=== PATIENT | female | born 1960 | race Caucasian/White ===

== ENCOUNTER 2025-04-30 19:24 | Observation (INO) ==
--- NOTE | 2025-04-30 19:35 | DR.SOBA ---
HPI Time Seen Time Seen by Provider: 04/30/25 19:33 Complaints Chief Complaint Doctors Comments: -year-old female seen on arrival to ED from home via POV for acute onset asthma attack patient states she uses her inhaler at home but cannot catch her breath constantly coughing placed in cardiac room DuoNeb and Solu-Medrol ordered PMH PMH Past Medical History: Anxiety, Arthritis, Asthma, Depression, Dyslipidemia, Migraines, GERD, Headaches and Hypertension Past Surgical History: Yes Surgical History: Hysterectomy, Ortho Surgery and Other Family History Family Medical History: Cancer, [place], Coronary Artery Disease, Heart Failure, Sudden Cardiac and Hypertension Social History Do you use any recreational Drugs:: No ROS Review of Systems Constitutional: No Symptoms Reported Eyes: No Symptoms Reported ENTM: No Symptoms Reported Respiratoy: See HPI, Short of Breath and Wheezing Cardiovascular: No Symptoms Reported Gastrointestinal/Abdominal: No Symptoms Reported Genitourinary: No Symptoms Reported Neurological: No Symptoms Reported Musculoskeletal: No Symptoms Reported Integumentary: No Symptoms Reported Hematologic/Lymphatic: No Symptoms Reported Endocrine: No Symptoms Reported Psychiatric: No Symptoms Reported All Other Systems: Reviewed and Negative PE Vital Signs Vitals: Vital Signs Temperature 98.6 F Pulse Rate 95 Pulse Rate 100 Pulse Rate 102 Pulse Rate 98 Pulse Rate 95 Pulse Rate 112 Pulse Rate 104 Pulse Rate 107 Pulse Rate 106 Pulse Rate 121 Pulse Rate 128 Pulse Rate 107 Pulse Rate 134 Respiratory Rate 18 Respiratory Rate 21 Respiratory Rate 41 Respiratory Rate 49 Respiratory Rate 66 Respiratory Rate 51 Respiratory Rate 44 Respiratory Rate 30 Blood Pressure 127/67 Blood Pressure 134/68 Blood Pressure 123/65 Blood Pressure 137/79 Blood Pressure 171/98 O2 Sat by Pulse Oximetry 94 O2 Sat by Pulse Oximetry 93 O2 Sat by Pulse Oximetry 92 O2 Sat by Pulse Oximetry 96 O2 Sat by Pulse Oximetry 98 O2 Sat by Pulse Oximetry 96 O2 Sat by Pulse Oximetry 100 O2 Sat by Pulse Oximetry 100 O2 Sat by Pulse Oximetry 100 O2 Sat by Pulse Oximetry 100 O2 Sat by Pulse Oximetry 100 O2 Sat by Pulse Oximetry 100 O2 Sat by Pulse Oximetry 99 General Limitations: No Limitations General Appearance: Alert and In Distress (Coughing short of breath) Head Head Exam: Normal Inspection Eyes Eye exam: Normal Appearance ENT ENT Exam: Normal Exam Neck Neck Exam: Normal Inspection Chest Chest Inspection: Normal Inspection Respiratory Respiratory Exam: Accessory Muscle Use and Other (Diminished breath sounds and wheezing) Respiratory Exam: Bilateral: Clear to Auscultation Cardiovascular Cardiovascular Exam: Regular Rate and Normal Rhythm Abdominal Exam Abdominal Exam: Normal Inspection, Normal Bowel Sounds and Soft Extremities Extremities Exam: Normal Inspection Back Back Exam: Normal Inspection Neurologic Neurological Exam: Alert and Oriented X3 Psychiatric Psychiatric Exam: Normal Affect and Normal Mood Skin Skin Exam: Warm, Dry, Intact and Normal Color COURSE Treatment Treatment: Discussed with patient she lives alone will consult hospitalist for possible admission Discussed with Dr. Saucedo will admit [facility] Labs Reviewed 04/30/25 19:29 04/30/25 19: Laboratory: WBC 6.9 X10^3/uL (3.6-10.0) 04/30/25 19: RBC 4.48 X10^6/uL (3.5-5.4) 04/30/25 19: Hgb 13.2 g/dL (12.0-16.0) 04/30/25 19: Hct 39.7 % (36.0-47.0) 04/30/25: MCV 88.5 fL (80.0-100.0) 04/30/25 19: MCH 29.5 pg (27.0-34.0) 04/30/25 19: MCHC 33.3 g/dL (33.0-35.0) 04/30/25 19: RDW 13.9 % (11.6-16.5) 04/30/25 19: Plt Count 230 X10^3/uL (150.0-450.0) 04/30/25 19: MPV 9.7 fL (7.4-11.0) 04/30/25 19: Neut % (Auto) 48.7 % (42.0-75.0) 04/30/25 19: Lymph % (Auto) 39.9 % (21.0-51.0) 04/30/25 19: [place] % (Auto) 7.1 % (0.0-13.0) 04/30/25 19: Eos % (Auto) 3.7 % (0.9-2.9) H 04/30/25: Baso % (Auto) 0.6 % (0.2-1.0) 04/30/25: Neut # (Auto) 3.4 x10^3/uL (2.2-4.8) 04/30/25 19:29 Lymph # (Auto) 2.8 X10^3/uL (1.3-2.9) 04/30/25 19:29 [place] # (Auto) 0.5 x10^3/uL (0.3-0.8) 04/30/25 19:29 Eos # (Auto) 0.3 x10^3/uL (0.0-0.2) H 04/30/25 19: Baso # (Auto) 0.0 X10^3/uL (0.0-0.1) 04/30/25 19: Absolute Nucleated RBC 0.1 /100WBC 04/30/25: D-Dimer 2.08 ug/ml (0.0-0.57) H 04/30/25 19:29 Sodium 139 mmol/L (136-145) 04/30/25 19: Corrected Sodium TNP 04/30/25: Potassium 4.6 mmol/L (3.5-5.1) 04/30/25 19: Chloride 103 mmol/L (98-107) 04/30/25 19: Carbon Dioxide 23.0 mmol/L (21-32) 04/30/25 19: BUN 21 mg/dL (7-18) H 04/30/25 19: Creatinine 1.35 mg/dL (0.55-1.02) H 04/30/25 19:29 Est GFR (MDRD) Af Amer 51 (>60) L 04/30/25 19: Est GFR (MDRD) Non-Af 42 (>60) L 04/30/25 19: Glucose 92 mg/dL (65-99) 04/30/25 19: Calcium 9.0 mg/dL (8.5-10.1) 04/30/25 19: Corrected Calcium TNP 04/30/25: Total Bilirubin 0.60 mg/dL (0.2-1.0) 04/30/25 19: AST 21 Units/L (15-37) 04/30/25 19: ALT 25 Units/L (12-78) 04/30/25 19: Alkaline Phosphatase 85 Units/L (46-116) 04/30/25 19:29 Troponin I High Sens 4.5 ng/L (4.0-60.0) 04/30/25 19:29 B-Natriuretic Peptide 91.6 pg/mL (0-79) H 04/30/25 19:29 Total Protein 7.7 g/dL (6.4-8.2) 04/30/25 19:29 Albumin 4.1 g/dL (3.4-5.0) 04/30/25 19:29 Globulin 3.6 g/dL (2.5-4.5) 04/30/25 19:29 Albumin/Globulin Ratio 1.1 Ratio (1.1-2.1) 04/30/25 19:29 SARS-CoV-2 (PCR) Negative (NEGATIVE) 04/30/25 19:59 Influenza Type A (PCR) Negative (NEGATIVE) 04/30/25 19:59 Influenza Type B (PCR) Negative (NEGATIVE) 04/30/25 19:59 RSV (PCR) Negative (NEGATIVE) 04/30/25 19:59 Opioid Opioid Risk Tool Age (Suman box if 16-45): No History of Preadolescent Sexual Abuse: No Total: 0 Total Score Risk Category: Low Risk Copyright: Nieves predicting aberrant behaviors Discharge Plan Diagnosis Discharge Problem: Asthma exacerbation Discharge Plan Patient Disposition: 09 ADMITTED INPATIENT Condition: Stable Prescriptions: No Action alprazolam 0.5 mg tablet 0.5 mg PO TID PRN cyclobenzaprine 10 mg tablet 10 mg PO QPM atenolol 25 mg tablet 25 mg PO QDAY tramadol 50 mg tablet 50 mg PO BID PRN pantoprazole 40 mg tablet,delayed release (DR/EC) 40 mg PO QDAY simvastatin 20 mg tablet 20 mg PO QPM montelukast 10 mg tablet 10 mg PO QDAY albuterol sulfate [Ventolin HFA] 90 mcg/actuation HFA aerosol inhaler 2 puff inhalation Q4-6H PRN diazepam 5 mg tablet 5 mg PO BID PRN escitalopram oxalate 10 mg tablet 10 mg PO QDAY Restasis MultiDose 0.05 % drops 1 drp OPHTHALMIC (EYE) BID Patient Comments: [NO ORIGINAL SIG] Dupixent Pen 300 mg/2 mL pen injector 300 mg SUBCUT QWEEK Patient Comments: [NO ORIGINAL SIG] Trelegy Ellipta 200-62.5-25 mcg blister with device 1 ea inhalation QDAY Health Concerns: Post Hospitalization: new medications and changes needed to prevent readmission or further decline. Pt educated and given instructions on all concerns. Plan of Treatment: Continue with present treatment and follow up plan. Pt is to keep follow up appointment as instructed and take medications as ordered. Follow ups/Referrals Follow ups/Referrals: Adriel Saucedo MD [Primary Care Provider, MEDICAL] - 3 days Instructions Print Language: LEBANESE
[2025-04-30] MEDS: PROVENTIL NEB TX 0.083% 2.5MG/ 3ML NEB ONE ×2 (19:40→20:01)
[2025-04-30 19:44] LABS: MEAN PLATELET VOLUME 9.7 fL (7.4-11.0); RED CELL DISTRIBUTION WIDTH 13.9 % (11.6-16.5)
[2025-04-30 19:54] LABS: CREATININE 1.35 mg/dL (0.55-1.02); eGFR NON BLACK RACES 42 (>60)
[2025-04-30] MEDS: OMNIPAQUE 350 mg/mL 100 mL BTL IVP NR (20:09)
[2025-04-30] MEDS: MAGNESIUM SULFATE 50% INJ VIAL 2 G in NS 100 ML IV 100 ML IV STA (20:33)
--- NOTE | 2025-04-30 21:29 | CT ---
EXAM: CTA CHEST WITH CONTRAST HISTORY: Elevated D-dimer COMPARISON: None. TECHNIQUE: Axial images were acquired of the chest with IV contrast for a CT angiogram. Coronal and sagittal images were provided. All images were reviewed in a variety of windows and levels. 3D 8 mm thick MIPS images were provided. RADIATION REDUCTION TECHNIQUE: Automated exposure control, Adjustment of the mA and/or kV according to patient size, or iterative reconstruction techniques were used. 8 mm thick axial MIPS images were provided. FINDINGS: CHEST: THYROID GLAND: The thyroid gland is unremarkable. HEART AND VESSELS: The heart size is within normal limits. There is no evidence of a pericardial effusion. The thoracic aorta is normal in size without evidence of aneurysm or dissection. The main pulmonary artery size is within normal limits. There are no filling defects seen in the visualized pulmonary arteries to suggest a pulmonary embolism. LYMPHNODES: There is no evidence of axillary, mediastinal, or hilar lymphadenopathy AIRWAY: The trachea and mainstem bronchi are patent. No intraluminal lesions are seen. LUNGS: Dependent atelectatic changes are noted. There is no evidence of consolidation, pleural effusion, or pneumothorax. ESOPHAGUS: The esophagus is grossly unremarkable. BONES: The visualized bones demonstrate degenerative changes. There are no concerning lytic or blastic lesions identified. UPPER ABDOMINAL STRUCTURES: The visualized portions of the upper abdominal structures are unremarkable. IMPRESSION: 1. There are no filling defects seen in the visualized pulmonary arteries to suggest a pulmonary embolism. 2. Dependent atelectatic changes are noted THIS IS AN ELECTRONICALLY VERIFIED FINAL REPORT 04/30/2025 9:25 PM - Electronically signed by Jayson Stoll MD
[2025-04-30] MEDS ORDERED: TYLENOL 325 MG TAB PO PRN (22:08)
[2025-04-30] MEDS ORDERED: NORCO 5/325 MG TAB PO PRN (22:08)
[2025-04-30] MEDS ORDERED: ULTRAM PO PRN (22:08)
--- NOTE | 2025-04-30 22:11 | DR.SOBA ---
HPI Time Seen Time Seen by Provider: 04/30/25 19:33 Primary Care Physician Primary Care Physician: JYOTSNA Bryant Chief Complaint:: PT AMBULATORY IN ED WITH C/O HAVING AN ASTHMA ATTACK THAT STARTED APPROX 1 HOUR PRIOR TO ARRIVAL. PT STATES SHE USED HER INHALER WITHOUT RELIEF. PT SHORT OF BREATH AND CONTINOUSLY COUGHING. COVID-19 Coronavirus risk:travel/contact w/high risk person: No Has patient experienced Coronavirus symptoms: No Source History Provided: Patient Mode of Arrival Mode of Arrival: Ambulatory Timing Onset of Chief Complaint: 04/30/25 PMH PMH Past Medical History: Yes Past Medical History: Anxiety, Arthritis, Asthma, Depression, Dyslipidemia, Migraines, GERD, Headaches and Hypertension Past Surgical History: Yes Surgical History: Hysterectomy, Ortho Surgery and Other Past Surgical History Comment: BILATERAL BREAST BX BILATERAL CATARACT RIGHT FOOT Family History History of Family Medical Conditions: Yes Family Medical History: Cancer, [place], Coronary Artery Disease, Heart Failure, Sudden Cardiac and Hypertension Social History Does patient currently use any type of tobacco product: No Have you used tobacco products in the last 12 months: No Type of Tobacco Use: None Does any household member use tobacco: No Alcohol Use: None Do you use any recreational Drugs:: No Lives With: Alone Lives Where: Home Travel Risk Coronavirus risk:travel/contact w/high risk person: No Has patient experienced Coronavirus symptoms: No Infectious screening In the last 2 months have you had wt loss of >10#?: NO Have you had fever, night sweats or hemotysis?: No Have you traveled outside the country in the last 6 months?: No Isolation: Standard PE Vital Signs Vitals: Vital Signs Temperature 98.6 F Pulse Rate 95 Pulse Rate 100 Pulse Rate 102 Pulse Rate 98 Pulse Rate 95 Pulse Rate 112 Pulse Rate 104 Pulse Rate 107 Pulse Rate 106 Pulse Rate 121 Pulse Rate 128 Pulse Rate 107 Pulse Rate 134 Respiratory Rate 18 Respiratory Rate 21 Respiratory Rate 41 Respiratory Rate 49 Respiratory Rate 66 Respiratory Rate 51 Respiratory Rate 44 Respiratory Rate 30 Blood Pressure 127/67 Blood Pressure 134/68 Blood Pressure 123/65 Blood Pressure 137/79 Blood Pressure 171/98 O2 Sat by Pulse Oximetry 94 O2 Sat by Pulse Oximetry 93 O2 Sat by Pulse Oximetry 92 O2 Sat by Pulse Oximetry 96 O2 Sat by Pulse Oximetry 98 O2 Sat by Pulse Oximetry 96 O2 Sat by Pulse Oximetry 100 O2 Sat by Pulse Oximetry 100 O2 Sat by Pulse Oximetry 100 O2 Sat by Pulse Oximetry 100 O2 Sat by Pulse Oximetry 100 O2 Sat by Pulse Oximetry 100 O2 Sat by Pulse Oximetry 99 [facility] Labs Reviewed 04/30/25 19:04/30/25: Laboratory: WBC 6.9 X10^3/uL (3.6-10.0) 04/30/25 19: RBC 4.48 X10^6/uL (3.5-5.4) 04/30/25: Hgb 13.2 g/dL (12.0-16.0) 04/30/25 19: Hct 39.7 % (36.0-47.0) 04/30/25: MCV 88.5 fL (80.0-100.0) 04/30/25: MCH 29.5 pg (27.0-34.0) 04/30/25: MCHC 33.3 g/dL (33.0-35.0) 04/30/25: RDW 13.9 % (11.6-16.5) 04/30/25: Plt Count 230 X10^3/uL (150.0-450.0) 04/30/25: MPV 9.7 fL (7.4-11.0) 04/30/25: Neut % (Auto) 48.7 % (42.0-75.0) 04/30/25: Lymph % (Auto) 39.9 % (21.0-51.0) 04/30/25: [place] % (Auto) 7.1 % (0.0-13.0) 04/30/25: Eos % (Auto) 3.7 % (0.9-2.9) H 04/30/25: Baso % (Auto) 0.6 % (0.2-1.0) 04/30/25: Neut # (Auto) 3.4 x10^3/uL (2.2-4.8) 04/30/25: Lymph # (Auto) 2.8 X10^3/uL (1.3-2.9) 04/30/25: [place] # (Auto) 0.5 x10^3/uL (0.3-0.8) 04/30/25 19:29 Eos # (Auto) 0.3 x10^3/uL (0.0-0.2) H 04/30/25 19: Baso # (Auto) 0.0 X10^3/uL (0.0-0.1) 04/30/25 19: Absolute Nucleated RBC 0.1 /100WBC 04/30/25 19: D-Dimer 2.08 ug/ml (0.0-0.57) H 04/30/25 19:29 Sodium 139 mmol/L (136-145) 04/30/25 19: Corrected Sodium TNP 04/30/25 19: Potassium 4.6 mmol/L (3.5-5.1) 04/30/25 19: Chloride 103 mmol/L (98-107) 04/30/25 19: Carbon Dioxide 23.0 mmol/L (21-32) 04/30/25 19: BUN 21 mg/dL (7-18) H 04/30/25 19: Creatinine 1.35 mg/dL (0.55-1.02) H 04/30/25 19:29 Est GFR (MDRD) Af Amer 51 (>60) L 04/30/25 19: Est GFR (MDRD) Non-Af 42 (>60) L 04/30/25 19: Glucose 92 mg/dL (65-99) 04/30/25 19: Calcium 9.0 mg/dL (8.5-10.1) 04/30/25 19: Corrected Calcium TNP 04/30/25 19: Total Bilirubin 0.60 mg/dL (0.2-1.0) 04/30/25 19: AST 21 Units/L (15-37) 04/30/25 19: ALT 25 Units/L (12-78) 04/30/25 19: Alkaline Phosphatase 85 Units/L (46-116) 04/30/25 19: Troponin I High Sens 4.5 ng/L (4.0-60.0) 04/30/25 19: B-Natriuretic Peptide 91.6 pg/mL (0-79) H 04/30/25 19: Total Protein 7.7 g/dL (6.4-8.2) 04/30/25 19:29 Albumin 4.1 g/dL (3.4-5.0) 04/30/25 19:29 Globulin 3.6 g/dL (2.5-4.5) 04/30/25 19:29 Albumin/Globulin Ratio 1.1 Ratio (1.1-2.1) 04/30/25 19:29 SARS-CoV-2 (PCR) Negative (NEGATIVE) 04/30/25 19:59 Influenza Type A (PCR) Negative (NEGATIVE) 04/30/25 19:59 Influenza Type B (PCR) Negative (NEGATIVE) 04/30/25 19:59 RSV (PCR) Negative (NEGATIVE) 04/30/25 19:59 Opioid Opioid Risk Tool Age (Suman box if 16-45): No History of Preadolescent Sexual Abuse: No Total: 0 Total Score Risk Category: Low Risk Copyright: Ezequiel ZENDEJAS predicting aberrant behaviors Discharge Plan Diagnosis Discharge Problem: Asthma exacerbation Discharge Plan Patient Disposition: 09 ADMITTED INPATIENT Condition: Stable Prescriptions: No Action alprazolam 0.5 mg tablet 0.5 mg PO TID PRN cyclobenzaprine 10 mg tablet 10 mg PO QPM atenolol 25 mg tablet 25 mg PO QDAY tramadol 50 mg tablet 50 mg PO BID PRN pantoprazole 40 mg tablet,delayed release (DR/EC) 40 mg PO QDAY simvastatin 20 mg tablet 20 mg PO QPM montelukast 10 mg tablet 10 mg PO QDAY albuterol sulfate [Ventolin HFA] 90 mcg/actuation HFA aerosol inhaler 2 puff inhalation Q4-6H PRN diazepam 5 mg tablet 5 mg PO BID PRN escitalopram oxalate 10 mg tablet 10 mg PO QDAY Restasis MultiDose 0.05 % drops 1 drp OPHTHALMIC (EYE) BID Patient Comments: [NO ORIGINAL SIG] Dupixent Pen 300 mg/2 mL pen injector 300 mg SUBCUT QWEEK Patient Comments: [NO ORIGINAL SIG] Trelegy Ellipta 200-62.5-25 mcg blister with device 1 ea inhalation QDAY Health Concerns: Post Hospitalization: new medications and changes needed to prevent readmission or further decline. Pt educated and given instructions on all concerns. Plan of Treatment: Continue with present treatment and follow up plan. Pt is to keep follow up appointment as instructed and take medications as ordered. Orders to Discharge Patient Discharge Orders: Transfer (Routine); Ordered 04/30/25 Ordered By: Jl Perez Follow ups/Referrals Follow ups/Referrals: Adriel Saucedo MD [Primary Care Provider, MEDICAL] - 3 days Instructions Print Language: TURKISH
[2025-04-30] MEDS ORDERED: VALIUM PO ONE (23:00)
[2025-04-30] MEDS: NS 500 ML IV 500 ML IV ONE (23:09)
[2025-04-30] MEDS: OMNIPAQUE 350 mg/mL 100 mL BTL 100 ML ONE (23:09)
[2025-04-30 23:20] VITALS: BMI 25.4
[2025-05-01] MEDS: PROVENTIL NEB TX 0.083% 2.5MG/ 3ML NEB SCH (00:06)
[2025-05-01] MEDS: CONSULT PHARMACY - POTASSIUM & MAGNESIUM XX SCH (01:21)
[2025-05-01] MEDS: TYLENOL 325 MG TAB PO PRN (01:58)
[2025-05-01] MEDS: ALPRAZOLAM ODT PO ONE (01:58)
[2025-05-01] MEDS: ALPRAZOLAM ODT ONE (04:04)
[2025-05-01 04:49] LABS: MEAN PLATELET VOLUME 9.6 fL (7.4-11.0); RED CELL DISTRIBUTION WIDTH 13.5 % (11.6-16.5)
[2025-05-01 05:04] LABS: COR NA(FOR HYPERGLY) 143 mmol/L (136-145); CREATININE 1.64 mg/dL (0.55-1.02); eGFR NON BLACK RACES 34 (>60)
[2025-05-01 05:21] LABS: PLATELET MORPHOLOGY COMMENT NORMAL (NORMAL)
--- NOTE | 2025-05-01 05:58 | RAD ---
EXAM: CHEST, 1 VIEW HISTORY: sob; PT AMBULATORY IN ED WITH C/O HAVING AN ASTHMA ATTACK THAT STARTED APPROX 1 HOUR PRIOR TO ARRIVAL. PT STATES SHE USED HER INHALER WITHOUT RELIEF. PT SHORT OF BREATH AND CONTINOUSLY COUGHING. COMPARISON: 04/30/2025 FINDINGS: The trachea is midline. The cardiac silhouette is unremarkable . The lungs are clear without focal infiltrate or effusion. The bony thorax is unremarkable. IMPRESSION: Normal chest THIS IS AN ELECTRONICALLY VERIFIED FINAL REPORT 05/01/2025 5:55 AM - Electronically signed by Jimmy Hoskins MD
[2025-05-01] MEDS: PULMICORT NEB TX 0.5 MG NEB SCH (08:27)
[2025-05-01] MEDS ORDERED: LEXAPRO ONE (08:59)
[2025-05-01] MEDS: LEXAPRO PO SCH (09:01)
[2025-05-01] MEDS: SINGULAIR TAB 10 MG PO SCH (09:01)
[2025-05-01] MEDS: PROTONIX TAB 40 MG PO SCH (09:01)
[2025-05-01] MEDS: LOVENOX INJ 40 MG SYR SC SCH (09:02)
[2025-05-01] MEDS: VALIUM PO PRN (09:07)
[2025-05-01 09:09] VITALS: RESP 20
[2025-05-01] MEDS: NS 1,000 ML IV 1,000 ML IV SCH (10:37)
[2025-05-01] MEDS: TENORMIN PO SCH (10:45)
[2025-05-01] MEDS: ULTRAM PO PRN (10:49)
[2025-05-01 12:38] VITALS: BP 111/70; PULSE 88; TEMP 98.2; O2SAT 94
[2025-05-01] MEDS ORDERED: ZOCOR TAB 20 MG PO SCH (21:00)
--- NOTE | 2025-05-02 16:36 | DR.SSS ---
SHORT STAY SUMMARY Admission Date Date of Admission: 04/30/25 Discharge Date Discharge Date: 05/01/25 Admission Diagnoses Admission Diagnoses: Dyspnea Asthma exacerbation Discharge Diagnoses Discharge Diagnoses: Asthma exacerbation Anemia FRANKI Dehydration Chief Complaint Chief Complaint: Dyspnea History of Present Illness History of Present Illness: Patient is a 64-year-old female with a past medical history of asthma, hypertension, seasonal allergies, GERD and hyperlipidemia presented with worsening shortness of breath. Patient tried to use her nebulizer and inhalers at home but continued to have worsening symptoms. She does have a history of recurrent asthma attacks. ER workup included chest x-ray which was negative for acute infection. She did have elevated D-dimer, CT chest was done which was negative for PE. She was treated with IV magnesium and steroids. She was admitted for further evaluation. Past Medical History Past Medical History: Anxiety, Arthritis, Asthma, Depression, Dyslipidemia, Migraines, GERD, Headaches and Hypertension Past Surgical History Surgical History: Hysterectomy, Ortho Surgery and Other Allergies Allergies Allergy/AdvReac Type Severity Reaction Status Date / Time mupirocin (From Bactroban) Allergy Intermediate RASH Verified 04/30/25 19:51 codeine Allergy Unknown Verified 04/30/25 19:51 droperidol (From Inapsine) Allergy Unknown Verified 04/30/25 19:51 hydrocodone (From Vicodin) Allergy Unknown Verified 04/30/25 19:51 hydromorphone (From Dilaudid) Allergy Unknown Verified 04/30/25 19:51 influenza virus vaccine qs Allergy Unknown Verified 04/30/25 19:51 [id number] (65 years up) (From Fluad Quad (65y up)(PF)) ketorolac (From Toradol) Allergy Unknown Verified 04/30/25 19:51 nalbuphine (From Nubain) Allergy Unknown Verified 04/30/25 19:51 Penicillins Allergy Unknown Verified 04/30/25 19:51 vaccine adjuvant emulsion Allergy Unknown Verified 04/30/25 19:51 MF59C.1 (From Fluad Quad (65y up)(PF)) meloxicam Allergy Verified 04/30/25 19:51 propoxyphene (From Allergy Verified 04/30/25 19:51 Darvocet-N 100) sertraline (From Zoloft) Allergy Verified 04/30/25 19:51 Medications Home Medications: mupirocin (From Bactroban) Allergy (Intermediate, Verified 04/30/25 19:51) RASH codeine Allergy (Unknown, Verified 04/30/25 19:51) droperidol (From Inapsine) Allergy (Unknown, Verified 04/30/25 19:51) hydrocodone (From Vicodin) Allergy (Unknown, Verified 04/30/25 19:51) hydromorphone (From Dilaudid) Allergy (Unknown, Verified 04/30/25 19:51) influenza virus vaccine qs [id number] (65 years up) (From InDMusic (65y up)(PF)) Allergy (Unknown, Verified 04/30/25 19:51) ketorolac (From Toradol) Allergy (Unknown, Verified 04/30/25 19:51) nalbuphine (From Nubain) Allergy (Unknown, Verified 04/30/25 19:51) Penicillins Allergy (Unknown, Verified 04/30/25 19:51) vaccine adjuvant emulsion MF59C.1 (From FluNutritics (65y up)(PF)) Allergy (Unknown, Verified 04/30/25 19:51) meloxicam Allergy (Verified 04/30/25 19:51) propoxyphene (From Darvocet-N 100) Allergy (Verified 04/30/25 19:51) sertraline (From Zoloft) Allergy (Verified 04/30/25 19:51) CONTINUE taking the following medications albuterol sulfate 90 mcg/actuation aerosol inhaler (Ventolin HFA) 2 puff inhalation Q4-6H PRN 04/30/25 [History] atenolol 25 mg tablet 25 mg PO QDAY 04/30/25 [History] cyclobenzaprine 10 mg tablet 10 mg PO QPM 04/30/25 [History] cyclosporine 0.05 % eye drops (Restasis MultiDose) 1 drp ophthalmic (eye) BID [History] diazepam 5 mg tablet 5 mg PO BID PRN 04/30/25 [History] dupilumab 300 mg/2 mL subcutaneous pen injector (Dupixent) 300 mg subcut QWEEK 04/30/25 [History] escitalopram oxalate 10 mg tablet 10 mg PO QDAY 04/30/25 [History] fluticasone fur. 200 mcg-umeclid 62.5 mcg-vilant 25 mcg inhalat.powder (Trelegy Ellipta) 1 ea inhalation QDAY 04/30/25 [History] montelukast 10 mg tablet 10 mg PO QDAY 04/30/25 [History] pantoprazole 40 mg tablet,delayed release 40 mg PO QDAY 04/30/25 [History] simvastatin 20 mg tablet 20 mg PO QPM 04/30/25 [History] tramadol 50 mg tablet 50 mg PO BID PRN 04/30/25 [History] New Prescriptions methylprednisolone 4 mg tablets in a dose pack See Rx Instructions PO .COMPLEX #21 ea 05/01/25 [Rx] Family History Family Medical History: Cancer, [place], Heart Failure and Hypertension Social History Does patient currently use any type of tobacco product: No Have you used tobacco products in the last 12 months: No Type of Tobacco Use: None Does any household member use tobacco: No Alcohol Use: None Drug Use: None Review of Systems Constitutional: No Symptoms Reported Eyes: No Symptoms Reported ENT: No Symptoms Reported Respiratory: Shortness of Breath and SOB with Excertion Cardiovascular: No Symptoms Reported Gastrointestinal: No Symptoms Reported Genitourinary: No Symptoms Reported Musculoskeletal: No Symptoms Reported Skin: No Symptoms Reported Neurological: No Symptoms Reported Physical Exam Vital Signs: Last Vital Signs Temp 98.2 F 05/01/25 12:00 Pulse 88 05/01/25 12:00 Resp 20 05/01/25 12:00 BP 111/70 05/01/25 12:00 Pulse Ox 94 L 05/01/25 12:00 O2 Del Method Room Air 05/01/25 12:00 O2 Flow Rate 2 05/01/25 08:32 FiO2 28 05/01/25 08:32 Oriented: Normal Respiratory: Clear Throughout Cardiovascular: Normal Palpation: Normal Tenderness: Normal Skin: Normal Musculoskeletal: Normal Psychiatric: Normal Mood Description: Calm Affect: Normal Speech Pattern: Clear and Appropriate Labs Labs: Laboratory Last Values WBC 5.4 X10^3/uL (3.6-10.0) 05/01/25 04:20 RBC 3.96 X10^6/uL (3.5-5.4) 05/01/25 04:20 Hgb 11.7 g/dL (12.0-16.0) L 05/01/25 04:20 Hct 34.6 % (36.0-47.0) L 05/01/25 04:20 MCV 87.4 fL (80.0-100.0) 05/01/25 04:20 MCH 29.6 pg (27.0-34.0) 05/01/25 04:20 MCHC 33.9 g/dL (33.0-35.0) 05/01/25 04:20 RDW 13.5 % (11.6-16.5) 05/01/25 04:20 Plt Count 178 X10^3/uL (150.0-450.0) 05/01/25 04:20 Plt Count Comment Adequate (ADEQUATE) 05/01/25 04:20 MPV 9.6 fL (7.4-11.0) 05/01/25 04:20 Neut % (Auto) 90.7 % (42.0-75.0) H 05/01/25 04:20 Lymph % (Auto) 8.3 % (21.0-51.0) L 05/01/25 04:20 Cassia % (Auto) 0.8 % (0.0-13.0) 05/01/25 04:20 Eos % (Auto) 0.1 % (0.9-2.9) L 05/01/25 04:20 Baso % (Auto) 0.1 % (0.2-1.0) L 05/01/25 04:20 Neut # (Auto) 4.9 x10^3/uL (2.2-4.8) H 05/01/25 04:20 Lymph # (Auto) 0.4 X10^3/uL (1.3-2.9) L 05/01/25 04:20 Cassia # (Auto) 0 x10^3/uL (0.3-0.8) L 05/01/25 04:20 Eos # (Auto) 0.0 x10^3/uL (0.0-0.2) 05/01/25 04:20 Baso # (Auto) 0.0 X10^3/uL (0.0-0.1) 05/01/25 04:20 Absolute Nucleated RBC 0.0 /100WBC 05/01/25 04:20 Total Counted 100 05/01/25 04:20 Neutrophils % (Manual) 92 % (39-76) H 05/01/25 04:20 Lymphocytes % (Manual) 8 % (13-43) L 05/01/25 04:20 Plt Morphology Comment Normal (NORMAL) 05/01/25 04:20 RBC Morphology Normal (NORMAL) 05/01/25 04:20 D-Dimer 2.08 ug/ml (0.0-0.57) H 04/30/25 19:29 Sodium 141 mmol/L (136-145) 05/01/25 04:20 Corrected Sodium 143 mmol/L (136-145) 05/01/25 04:20 Potassium 4.3 mmol/L (3.5-5.1) 05/01/25 04:20 Chloride 104 mmol/L (98-107) 05/01/25 04:20 Carbon Dioxide 17.1 mmol/L (21-32) L 05/01/25 04:20 BUN 22 mg/dL (7-18) H 05/01/25 04:20 Creatinine 1.64 mg/dL (0.55-1.02) H 05/01/25 04:20 Est GFR (MDRD) Af Amer 41 (>60) L 05/01/25 04:20 Est GFR (MDRD) Non-Af 34 (>60) L 05/01/25 04:20 Glucose 179 mg/dL (65-99) H 05/01/25 04:20 Calcium 8.5 mg/dL (8.5-10.1) 05/01/25 04:20 Corrected Calcium TNP 05/01/25 04:20 Total Bilirubin 0.40 mg/dL (0.2-1.0) 05/01/25 04:20 AST 16 Units/L (15-37) 05/01/25 04:20 ALT 21 Units/L (12-78) 05/01/25 04:20 Alkaline Phosphatase 78 Units/L (46-116) 05/01/25 04:20 Troponin I High Sens 5.1 ng/L (4.0-60.0) 05/01/25 02:13 B-Natriuretic Peptide 91.6 pg/mL (0-79) H 04/30/25 19:29 Total Protein 6.7 g/dL (6.4-8.2) 05/01/25 04:20 Albumin 3.4 g/dL (3.4-5.0) 05/01/25 04:20 Globulin 3.3 g/dL (2.5-4.5) 05/01/25 04:20 Albumin/Globulin Ratio 1.0 Ratio (1.1-2.1) L 05/01/25 04:20 SARS-CoV-2 (PCR) Negative (NEGATIVE) 04/30/25 19:59 Influenza Type A (PCR) Negative (NEGATIVE) 04/30/25 19:59 Influenza Type B (PCR) Negative (NEGATIVE) 04/30/25 19:59 RSV (PCR) Negative (NEGATIVE) 04/30/25 19:59 Hospital Course Hospital Course: Patient was admitted for asthma exacerbation. Her labs were monitored daily and electrolytes replaced as needed. She was treated with IV steroids and bronchodilators. Her renal function was slightly down, she was started on hydration. Patient did not require any oxygen prior to discharge. She was stable to be discharged home on p.o. steroids. She will continue using her nebulizer as needed. She will follow-up with PCP as scheduled. Discharge Medications Discharge Medications: Home Medication List albuterol sulfate 90 mcg/actuation aerosol inhaler (Ventolin HFA) 2 puff inhalation Q4-6H PRN 04/30/25 [History] atenolol 25 mg tablet 25 mg PO QDAY 04/30/25 [History] cyclobenzaprine 10 mg tablet 10 mg PO QPM 04/30/25 [History] cyclosporine 0.05 % eye drops (Restasis MultiDose) 1 drp ophthalmic (eye) BID 04/30/25 [History] diazepam 5 mg tablet 5 mg PO BID PRN 04/30/25 [History] dupilumab 300 mg/2 mL subcutaneous pen injector (Dupixent) 300 mg subcut QWEEK 04/30/25 [History] escitalopram oxalate 10 mg tablet 10 mg PO QDAY 04/30/25 [History] fluticasone fur. 200 mcg-umeclid 62.5 mcg-vilant 25 mcg inhalat.powder (Trelegy Ellipta) 1 ea inhalation QDAY 04/30/25 [History] montelukast 10 mg tablet 10 mg PO QDAY 04/30/25 [History] pantoprazole 40 mg tablet,delayed release 40 mg PO QDAY 04/30/25 [History] simvastatin 20 mg tablet 20 mg PO QPM 04/30/25 [History] tramadol 50 mg tablet 50 mg PO BID PRN 04/30/25 [History] methylprednisolone 4 mg tablets in a dose pack See Rx Instructions PO .COMPLEX #21 ea 05/01/25 [Rx] Prescriptions: Lita Thompson Discharge Disposition Discharge Disposition: To home Discharge Plan Discharge Plan Patient Disposition: 01 HOME, SELF-CARE Condition: Stable Health Concerns: Post Hospitalization: new medications and changes needed to prevent readmission or further decline. Pt educated and given instructions on all concerns. Care Plan Goals: Problem: Respiratory Complications Goal: Improved Uncomplicated Respiratory Status Instructions: Follow provided instructions. Follow up with primary physician as directed. Contact primary care physician or report to the closest Emergency Room if condition worsens. Plan of Treatment: Continue with present treatment and follow up plan. Pt is to keep follow up appointment as instructed and take medications as ordered. Assessment: No distress noted. Prescription drug monitoring program results: PDMP reviewed and no concerns identified Prescriptions: New methylprednisolone 4 mg tablets,dose pack See Rx Instructions .ROUTE .COMPLEX Qty: 21 0RF Rx Instructions: for 6 days Continued alprazolam 0.5 mg tablet 0.5 mg PO TID PRN cyclobenzaprine 10 mg tablet 10 mg PO QPM atenolol 25 mg tablet 25 mg PO QDAY tramadol 50 mg tablet 50 mg PO BID PRN pantoprazole 40 mg tablet,delayed release (DR/EC) 40 mg PO QDAY simvastatin 20 mg tablet 20 mg PO QPM montelukast 10 mg tablet 10 mg PO QDAY albuterol sulfate [Ventolin HFA] 90 mcg/actuation HFA aerosol inhaler 2 puff inhalation Q4-6H PRN diazepam 5 mg tablet 5 mg PO BID PRN escitalopram oxalate 10 mg tablet 10 mg PO QDAY Restasis MultiDose 0.05 % drops 1 drp OPHTHALMIC (EYE) BID Patient Comments: [NO ORIGINAL SIG] Dupixent Pen 300 mg/2 mL pen injector 300 mg SUBCUT QWEEK Patient Comments: [NO ORIGINAL SIG] Trelegy Ellipta 200-62.5-25 mcg blister with device 1 ea inhalation QDAY Orders to Discharge Patient Discharge Orders: Discharge (Routine); Ordered 05/01/25 Ordered By: Lita Hicks Follow ups/Referrals Follow ups/Referrals: Adriel Saucedo MD [Primary Care Provider, MEDICAL] - 05/08/25 1:20 pm Instructions Instructions: Asthma, Adult, [id number], Asthma Attack Prevention, Adult Stand Alone Forms: Find Help Web Site, Post Hospital Follow Up Care Print Language: ARABIC
== END 2025-05-01 15:10 | disposition home or self-care (01) ==
LOC: MED/SURG 19:24 → ER 19:24 → MED/SURG 22:46
PROVIDERS: ADMIT Family Medicine; ATTEND Family Medicine
DX: R94.4 Abnormal results of kidney function studies; Z79.899 Other long term (current) drug therapy; D64.89 Other specified anemias; R06.09 Other forms of dyspnea; R05.8 Other specified cough; Z03.818 Encounter for observation for suspected exposure to other biological agents ruled out; M19.90 Unspecified osteoarthritis, unspecified site; I10 Essential (primary) hypertension; R79.1 Abnormal coagulation profile; N17.8 Other acute kidney failure; R73.09 Other abnormal glucose; F32.89 Other specified depressive episodes; F41.8 Other specified anxiety disorders; E86.0 Dehydration; E78.5 Hyperlipidemia, unspecified; R06.02 Shortness of breath; R79.89 Other specified abnormal findings of blood chemistry; J45.901 Unspecified asthma with (acute) exacerbation; K21.9 Gastro-esophageal reflux disease without esophagitis